=== PATIENT | female | born 1950 | race Caucasian/White ===

== ENCOUNTER → 2017-05-09 | Outpatient (CLI) | payer MEDICARE ==
[~2017-05-09] MED LIST: ADJUSTABLE COMM1 MIS; CALC600T34 PO; CINN500C2 PO; CPMMACHINE; LEVO50TA4 PO; LOVA20TA PO; LOVA40TA PO; MAGN500T2 PO; MAGN500T4 PO; RANI150C PO; TRAM50 PO; TURM500C7 PO; VITA100017 PO; VITA2000 PO; VITA500015 PO; VITA500T83 PO; WALKER WHEELS/F1 MIS; ZANT150T2 PO
[2017-05-09 08:42] LABS: AUTOMATED NEUTROPHIL # 2.2 TH/MM3 (1.8-7.7); BASOPHIL % 0.6 % (0.0-2.0); EOSINOPHIL % 0.9 % (0.0-4.0); HEMATOCRIT 41.6 % (35.0-46.0); HEMOGLOBIN 14.1 GM/DL (11.6-15.3); LYMPH % 37.5 % (9.0-44.0); LYMPHOCYTE # 1.5 TH/MM3 (1.0-4.8); MEAN CELL VOLUME 93.5 FL (80.0-100.0); MEAN CORPUSCULAR HEMOGLOBIN 31.8 PG (27.0-34.0); MEAN PLATELET VOLUME 8.1 FL (7.0-11.0); MONO % 7.9 % (0.0-8.0); MONOCYTE # 0.3 TH/MM3 (0-0.9); NEUT % 53.1 % (16.0-70.0); PLATELET COUNT 219 TH/MM3 (150-450); RED BLOOD COUNT 4.45 MIL/MM3 (4.00-5.30); RED CELL DISTRIBUTION WIDTH 14.8 % (11.6-17.2); WHITE BLOOD COUNT 4.1 TH/MM3 (4.0-11.0)
[2017-05-09 08:53] LABS: PROTHROMBIN TIME - PATIENT 9.8 SEC (9.8-11.6)
[2017-05-09 09:12] LABS: AST (GOT) 19 U/L (15-37); BICARBONATE 26.6 MEQ/L (21.0-32.0); BLOOD UREA NITROGEN 19 MG/DL (7-18); CALCIUM 9.2 MG/DL (8.5-10.1); CHLORIDE 109 MEQ/L (98-107); GLOMERULAR FILTRATION RATE 62 ML/MIN (>89); GLUCOSE,FASTING 113 MG/DL (74-99); SODIUM (NA) 143 MEQ/L (136-145)
[2017-05-09 09:13] LABS: ALT (GPT) 35 U/L (10-53)
[2017-05-09 09:15] LABS: ALKALINE PHOSPHATASE 88 U/L (45-117); TOTAL BILIRUBIN ADULT 0.7 MG/DL (0.2-1.0); TOTAL PROTEIN 7.3 GM/DL (6.4-8.2)
[2017-05-09 09:50] LABS: BILIRUBIN, URINE NEG (NEG); BLOOD, URINE NEG (NEG); GLUCOSE,URINE NEG (NEG); KETONE, URINE NEG (NEG); MUCUS URINE FEW /lpf (OCC); NITRITE,URINE NEG (NEG); URINE COLOR LIGHT-YELLOW (YELLW/STRAW); URINE LEUKOCYTE ESTERASE NEG (NEG)
--- NOTE | 2017-05-11 14:47 | MH ---
cc: Darrel Ngo MD DATE OF ADMISSION: 05/09/2017 ADMITTING DIAGNOSIS: Osteoarthritic degeneration, right knee, now being admitted for right total knee arthroplasty. ADMISSION HISTORY AND PHYSICAL: This pleasant 66-year-old female is being admitted today for right total knee arthroplasty, severe painful osteoarthritic degeneration right knee. OTHER PAST HISTORY: The patient has a history of anxiety, hypothyroidism, hyperlipidemia, and arthritis. CURRENT MEDICATIONS: Levothyroxine, lovastatin. PREVIOUS SURGERIES: Cataracts. REVIEW OF SYSTEMS: Noncontributory. FAMILY HISTORY: Noncontributory. The patient does not smoke, drinks socially. HAS ALLERGY TO PLAIN CODEINE. PHYSICAL EXAMINATION: We find a 66-year-old female, well developed, well nourished and well oriented x 3, complaint of pain in right knee. VITAL SIGNS: Blood pressure 118/72, pulse 68 and regular, respiration 14, temp 98.4, pulse oximetry 98% on room air. HEENT: Eyes PERRLA, EOMI. Ears, nose, mouth clear. NECK: Supple. LUNGS: Clear. HEART: Regular rate. ABDOMEN: Soft, positive bowel sounds, nontender. EXTREMITIES: Reveal right knee to be tender with crepitance on range of motion. Neurovascularly intact to her toes. IMPRESSION: At this time, severe painful osteoarthritic degeneration, right knee. PLAN: Admission, right total knee arthroplasty today. The patient given prescription for postoperative pain and anticoagulation control in the office, plans on going most likely home versus a senior living facility after a surgical stay in the hospital. JMD MORIS Laureano/STANLEY , 02:31 PM , 02:46 PM
== END ==
LOC: CPRE 08:00
PROVIDERS: ATTEND Surgery
DX: Z01.812 Encounter for preprocedural laboratory examination (principal); M79.609 Pain in unspecified limb
CPT/HCPCS: 36415; 80053; 81001; 85025; 85610; 85730

== ENCOUNTER 2017-05-16 05:29 | Observation (INO) | payer MEDICARE ==
--- NOTE | 2017-05-11 14:47 | MH ---
cc: Darrel Ngo MD DATE OF ADMISSION: 05/16/2017 ADMITTING DIAGNOSIS: Osteoarthritic degeneration, right knee, now being admitted for right total knee arthroplasty. ADMISSION HISTORY AND PHYSICAL: This pleasant 66-year-old female is being admitted today for right total knee arthroplasty, severe painful osteoarthritic degeneration right knee. OTHER PAST HISTORY: The patient has a history of anxiety, hypothyroidism, hyperlipidemia, and arthritis. CURRENT MEDICATIONS: Levothyroxine, lovastatin. PREVIOUS SURGERIES: Cataracts. REVIEW OF SYSTEMS: Noncontributory. FAMILY HISTORY: Noncontributory. The patient does not smoke, drinks socially. HAS ALLERGY TO PLAIN CODEINE. PHYSICAL EXAMINATION: We find a 66-year-old female, well developed, well nourished and well oriented x 3, complaint of pain in right knee. VITAL SIGNS: Blood pressure 118/72, pulse 68 and regular, respiration 14, temp 98.4, pulse oximetry 98% on room air. HEENT: Eyes PERRLA, EOMI. Ears, nose, mouth clear. NECK: Supple. LUNGS: Clear. HEART: Regular rate. ABDOMEN: Soft, positive bowel sounds, nontender. EXTREMITIES: Reveal right knee to be tender with crepitance on range of motion. Neurovascularly intact to her toes. IMPRESSION: At this time, severe painful osteoarthritic degeneration, right knee. PLAN: Admission, right total knee arthroplasty today. The patient given prescription for postoperative pain and anticoagulation control in the office, plans on going most likely home versus a correction facility after a surgical stay in the hospital. MD MORIS Garcia/STANLEY , 02:31 PM , 02:46 PM ROSALVA
[~2017-05-16] VITALS: Ht 154.9 cm; Wt 80.1 kg
[~2017-05-16 05:29] MED LIST changes: -ADJUSTABLE COMM1 MIS; -CALC600T34 PO; -CPMMACHINE; -LOVA20TA PO; -MAGN500T4 PO; -RANI150C PO; -TRAM50 PO; -VITA100017 PO; -VITA500015 PO; -WALKER WHEELS/F1 MIS
[2017-05-16] MEDS ORDERED: ACETAMINOPHEN 1000 MG/100 ML 100 ML IV ONE (05:53)
[2017-05-16] MEDS ORDERED: DEXAMETHASONE SOD PHOS PF 10 MG/ML VIAL ONE (06:31)
[2017-05-16] MEDS ORDERED: ceFAZolin INJ 1,000 MG VIAL ONE (06:49)
[2017-05-16 06:56] VITALS: PULSE 80
[2017-05-16] MEDS ORDERED: METOPROLOL TARTRATE 25 MG TAB PO PRN (07:15)
[2017-05-16] MEDS ORDERED: SODIUM CHLORID 0.9% 500 ML IV PRN (07:15)
[2017-05-16] MEDS ORDERED: CHLORHEXIDINE GLUCONATE 2 % 1 PACK (2 CLOTHS) TOPICAL PRN (07:15)
[2017-05-16] MEDS ORDERED: MIDAZOLAM HCL 2 MG/2 ML VIAL ONE (07:15)
[2017-05-16] MEDS ORDERED: POVIDONE IODINE 5% (ANTISEPSIS KIT) 4 APPLICATIONS EACH NARE PRN (07:15)
[2017-05-16] MEDS ORDERED: LACTATED RINGER'S 1000 ML IV PRN (07:15)
[2017-05-16] MEDS ORDERED: BUPIVACAINE LIPOSOME PF 1.3% 20 ML VIAL ONE (07:15)
[2017-05-16] MEDS ORDERED: APREPITANT 40 MG CAP ONE (07:27)
[2017-05-16] MEDS ORDERED: CHLORHEXIDINE GLUCONATE 4% SOLN 120 ML BTL TOPICAL SCH (07:30)
[2017-05-16] MEDS ORDERED: VANCOMYCIN 1000 MG/NS 250 ML (for <70 kg) IV SCH ×2 (07:30)
[2017-05-16] MEDS ORDERED: NALOXONE HCL 0.4 MG/ML AMP IV PUSH PRN (07:45)
[2017-05-16] MEDS ORDERED: Post-op Orders (for Pharmacy) XX ONE (07:45)
[2017-05-16] MEDS ORDERED: ACETAMINOPHEN 325 MG TAB PO PRN (07:45)
[2017-05-16] MEDS ORDERED: ACETAMINOPHEN/HYDROcodone 325 MG/7.5 MG TAB PO PRN (07:45)
[2017-05-16] MEDS ORDERED: diphenhydrAMINE HCL 50 MG/ML VIAL IV PUSH PRN (07:45)
[2017-05-16] MEDS ORDERED: TRANEXAMIC ACID INJ 0 MG in SODIUM CHLORIDE 0.9% INJ 100 ML IV SCH (07:45)
--- NOTE | 2017-05-16 07:45 | HHI.FF ---
Face to Face Verification Diagnosis: (1) Status post total right knee replacement Physical Therapy Gait training Knee: Total knee, Protocol: Right, Gait training, Full weight bearing Canvas Knee Splint: When in bed & 2 pillows btw thighs Nursing RN: 3 days/week x 2 weeks Nursing: Dressing changes Dressing Changes: Daily dressing change, 4x4s, Gauze, Paper tape I have seen patient Emelina Escobar on 05/16/17. My clinical findings support the need for the requested home health care services because: Limited ability to care for self High risk of falls I certify that my clinical findings support that this patient is homebound because: Unsteady gait/balance Darrel Ngo MD May 16, 2017 07:45
[2017-05-16] MEDS ORDERED: ADJUSTABLE COMM1 MIS (07:46)
[2017-05-16] MEDS ORDERED: WALKER WHEELS/F1 MIS (07:46)
[2017-05-16] MEDS ORDERED: CPMMACHINE (07:46)
[2017-05-16] MEDS ORDERED: SODIUM CHLORIDE 0.9% IV SCH ×2 (08:00→11:00)
[2017-05-16] MEDS ORDERED: CEFAZOLIN INJ 2,000 MG in SODIUM CHLORIDE 0.9% INJ 100 ML IV SCH (08:00)
[2017-05-16] MEDS ORDERED: BUPIVACAINE LIPOSO PF 1.3% INJ 20 ML, BUPIVACAINE PF 0.25% INJ 20 ML in SODIUM CHLORIDE... P-ARTICULR SCH (08:00)
[2017-05-16] MEDS ORDERED: TRANEXAMIC ACID IV SCH ×2 (08:00→11:00)
[2017-05-16] MEDS ORDERED: DO NOT ADM ANY ANTICOAGULANT DRUGS PRN (08:42)
[2017-05-16] MEDS: LEVOTHYROXINE SODIUM 50 MCG TAB PO SCH (09:00)
[2017-05-16] MEDS ORDERED: TURMERIC ROOT EXTRACT PO SCH (09:00)
[2017-05-16] MEDS ORDERED: CINNAMON 1000 MG PO SCH (09:00)
[2017-05-16] MEDS ORDERED: FAMOTIDINE 20 MG TAB PO PRN (09:00)
[2017-05-16] MEDS: CHOLECALCIFEROL (VIT D3) 1000 UNIT TAB PO SCH (10:00)
[2017-05-16] MEDS ORDERED: ASCORBIC ACID 500 MG PO SCH (10:00)
[2017-05-16] MEDS: PRAVASTATIN SOD 80 MG TAB PO SCH ×2 (10:00→22:45)
[2017-05-16] MEDS ORDERED: *morphine SULFATE 8 MG/ML PERIprocedure ONLY ONE ×3 (10:49→11:17)
--- NOTE | 2017-05-16 10:56 | HHI.PR ---
Immediate Post Op Note Procedure Date: May 16, 2017 Pre Op Diagnosis: (1) Osteoarthritis of right knee Post Op Diagnosis: Osteoarthritis of Right Knee Surgeon: Darrel Ngo MD Cap Blocker(s): Eula MADRIGAL Procedure: Right Total Knee Arthroplasty Complications: none Specimen(s) removed: none Estimated blood loss: 100cc Anesthesia: General Drains: None IVF Urinary Output (mLs): 0 (NO barron) Tourniquet time (min at mmHg) 55 mins at 300mmHg Patient to: PACU Patient Condition: Good Implant/Devices: SEE IMPLANT LOG (if applicable) Date/Time of Procedure: SEE SURGICAL CARE RECORD Eula Crowder May 16, 2017 10:56
[2017-05-16] MEDS: LACTATED RINGER'S 1000 ML INJ 1,000 ML IV SCH ×2 (11:09→20:34)
--- NOTE | 2017-05-16 11:16 | MP ---
cc: Darrel Ngo MD DATE OF OPERATION: DATE OF SURGERY: 05/16/2017. PREOPERATIVE DIAGNOSIS: Osteoarthritic degeneration, right knee. POSTOPERATIVE DIAGNOSIS: Osteoarthritic degeneration, right knee. PROCEDURE PERFORMED: Right total knee arthroplasty using Consensus knee system. Component sizes were: Size 3 femur, 2 tibia, 2 patella, 12 insert, 2 batches of DePuy cement. SURGEON: Dr. Ngo OUTPATIENT RECEPTIONIST: ROHAN Antonio. ANESTHESIA: General intubation and block. PROCEDURE: After successful induction of anesthesia, the patient is placed on the operating room table in the supine position. The knee is prepped and draped in the usual manner. A tourniquet is inflated at the upper thigh and set to 300 mmHg pressure after exsanguination of the lower extremity. A longitudinal incision is made extending from 3 inches proximal to the superior pole of the patella, across the patella in longitudinal fashion, and down past the insertion of the tibial tubercle into the proximal tibia. The incision is carried down through subcutaneous tissue along the medial aspect of the patella and retinaculum, down through the capsule to expose the knee joint. The patella and patellar tendon are freed up enough to allow the patella to be inverted and retracted off the lateral side of the knee joint. The knee joint is left exposed. Small osteophytes are removed. All soft tissue is removed to allow proper position of the femoral and tibial cutting jig guide. The first femoral jig is then inserted along the distal end of the femur after first measuring to decide whether this is a small, medium, or large component. The notch is then drilled and the tibial cutting guide inserted into the femoral cutting guide, along with the ankle brace to allow for proper measurement of the tibial cutting surface that needed to be resected. Pins are inserted into the tibial cutting jig and femoral cutting jig to hold them in place. An oscillating saw is then used to resect the surface of the tibia. The surface of the tibia is then completely removed using sharp and blunt dissection. The anterior and posterior cuts of the femur are then made as well using an oscillating saw through the cutting guide. All guides are then removed and the varus/valgus angulation cutting guide applied to the femur for proper measurement of the proper amount of valgus. The anterior cutting guide for the femur is then inserted at the anterior femoral cuts made. Next, the first block trial is inserted into the femur to allow for proper condyle drill holes to be made which are then made followed by removal of the bone between the condyles using an oscillating saw as well as the bone removed at the most posterior surface of the condyle. After this, this guide is removed and the chamfer cuts made using the chamfer cutting guide from both anterior and posterior. Next, the femoral trial is then inserted, the tibial surface reflected anterior to expose the tibial surface and a tibial stem guide is inserted after first measuring for a standard, standard plus, large, or large plus surface to be used. After the stem is impacted the trial tibial surface is applied followed by the trial meniscal components. After full range of motion is found with the appropriate length meniscal components varying the patella is prepared by resecting the posterior aspect of the patella using an oscillating saw, inserting a trial. The trial is then removed and the cruciate cutting guide applied using the bur to cut the cruciate cuts. After cruciate cuts are made all trials are removed. The wound is irrigated copiously with antibiotic solution and Water Pik and the actual components inserted into place using the aforementioned components, Consensus knee system, component sizes: Size 3 femur, 2 tibia, 2 patella, 12 insert, 2 batches of DePuy cement. After the cement has hardened and the components are found to have full range of motion with no instability, the tourniquet is deflated, total tourniquet time being 57 minutes at 300 mmHg pressure. 120 cc of a mixture of Exparel, normal saline and 0.25% Marcaine plain was inserted around the knee joint for extra pain control. Meticulous hemostasis achieved. Deep fascia approximated with a running #2 Quill, the subcutaneous tissue approximated using interrupted and running 2-0 and 4-0 Monocryl suture, Steri-Strips, sterile dressing and knee immobilizer. No drain utilized. ESTIMATED BLOOD LOSS: 100 cc. COUNTS: Sponge and suture counts correct. CONDITION: The patient tolerated the procedure well and left the operating room in satisfactory condition. ROHAN Antonio, was present during the entire procedure to include patient positioning and the procedure. The medical necessity of the nurse practitioner and stores assistant was indicated in this case due to the surgical complexity of the case itself. During the surgical case, the ophthalmology surgical technician was working the back table while my director medical surgical ROHAN was directly assisting me. J. Brain Ngo MD JRZachary/SB , 10:40 AM , 11:16 AM
--- NOTE | 2017-05-16 11:17 | RADRPT ---
EXAM DATE/TIME: 05/16/2017 11:51 [facility] COMPARISON: No previous studies available for comparison. INDICATIONS : Post-op total right knee arthroplasty. MEDICAL HISTORY : None. SURGICAL HISTORY : Tonsillectomy. Arthroscopy. Breast reduction. ENCOUNTER: Initial ACUITY: 1 day PAIN SCORE: 10/10 LOCATION: Right Knee. FINDINGS: Right total knee replacement is noted. The prosthesis appears to be in good position. There is no fra cture or dislocation. CONCLUSION: Status post right total knee replacement which is in good position. Phu Gould MD on May 16, 2017 at 11:14 Board Certified Radiologist. This report was verified electronically.
[2017-05-16] MEDS ORDERED: *MEPERIDINE 25 MG INJ VIAL PERIprocedural Use ONLY ONE (11:29)
[2017-05-16] MEDS ORDERED: PHENYLEPH/NS 1000 MCG/10 ML SYR IV ONE (12:00)
[2017-05-16] MEDS ORDERED: GLYCOPYRROLATE 1 MG/5 ML SYRINGE IV PUSH ONE (12:00)
[2017-05-16] MEDS ORDERED: NEOSTIGMINE 5 MG/5 ML SYRINGE IV PUSH ONE (12:00)
[2017-05-16] MEDS ORDERED: ONDANSETRON HCL 4 MG/2 ML VIAL IV PUSH ONE (12:00)
[2017-05-16] MEDS ORDERED: LIDOCAINE HCL 1% PF 5 ML SYRINGE OTHER ONE (12:00)
[2017-05-16] MEDS ORDERED: PROPOFOL 200 MG/20 ML AMP IV ONE (12:00)
[2017-05-16] MEDS ORDERED: ROCURONIUM INJ 50 MG/5 ML SYRINGE IV PUSH ONE (12:00)
[2017-05-16] MEDS: ONDANSETRON HCL 4 MG/2 ML VIAL IVP PRN (13:50)
[2017-05-16] MEDS ORDERED: MORPHINE SULFATE 4 MG/ML INJ IV PUSH PRN (14:30)
[2017-05-16 15:36] VITALS: BP 101/70; PULSE 92; RESP 18; TEMP 97.8; O2SAT 97
[2017-05-16] MEDS ORDERED: MAGNESIUM OXIDE 500 MG PO SCH (17:00)
[2017-05-16 19:35] VITALS: BP 139/71; PULSE 95; RESP 17; TEMP 97.4; O2SAT 96
[2017-05-16] MEDS ORDERED: TEMAZEPAM 15 MG CAP PO PRN (21:00)
[2017-05-16] MEDS: BENZOCAINE-MENTHOL (SUGAR FREE) 15 MG-3.6 MG LOZENGE BUCCAL PRN (21:36)
[2017-05-16 23:05] VITALS: BP 129/76; PULSE 97; RESP 17; TEMP 97.6; O2SAT 94
[2017-05-17] MEDS: ACETAMINOPHEN/HYDROcodone 325 MG/7.5 MG TAB PO PRN ×2 (02:50→08:37)
[2017-05-17] MEDS: ONDANSETRON HCL 4 MG/2 ML VIAL IVP PRN ×3 (02:56→16:48)
[2017-05-17 03:05] VITALS: BP 127/92; PULSE 90; RESP 16; TEMP 97.5; O2SAT 96
[2017-05-17] MEDS: BENZOCAINE-MENTHOL (SUGAR FREE) 15 MG-3.6 MG LOZENGE BUCCAL PRN ×2 (03:11→20:57)
[2017-05-17] MEDS: LEVOTHYROXINE SODIUM 50 MCG TAB PO SCH (04:54)
[2017-05-17 06:01] LABS: HEMOGLOBIN 11.9 GM/DL (11.6-15.3)
[2017-05-17 07:41] VITALS: BP 107/62; PULSE 99; RESP 19; TEMP 97.5; O2SAT 97
[2017-05-17] MEDS: CHOLECALCIFEROL (VIT D3) 1000 UNIT TAB PO SCH (08:36)
[2017-05-17] MEDS: PRAVASTATIN SOD 80 MG TAB PO SCH (08:37)
[2017-05-17] MEDS: APIXABAN 2.5 MG TABLET PO SCH ×2 (08:37→20:58)
[2017-05-17] MEDS: PSYLLIUM FIBER SF/GF 6 GM POWD PKT PO SCH (09:00)
[2017-05-17] MEDS: LACTATED RINGER'S 1000 ML INJ 1,000 ML IV SCH ×2 (09:30→21:01)
--- NOTE | 2017-05-17 09:51 | PD.ORT.PN ---
Subjective Subjective Remarks Pt nauseous today. Minimal pain at present. Objective Vitals Vital Signs Date Time Temp Pulse Resp B/P (MAP) Pulse Ox O2 Delivery O2 Flow Rate FiO2 05/17/17 07:41 97.5 99 19 107/62 (77) 97 05/17/17 07:16 Room Air 05/17/17 03:05 97.5 90 16 127/92 (104) 96 05/16/17 23:05 97.6 97 17 129/76 (93) 94 05/16/17 19:35 97.4 95 17 139/71 (93) 96 05/16/17 15:36 97.8 92 18 101/70 (80) 97 05/16/17 13:08 Nasal Cannula 3.00 05/16/17 12:00 77 12 121/58 (79) 94 Nasal Cannula 3 05/16/17 11:30 87 18 111/56 (74) 99 Nasal Cannula 3 05/16/17 11:15 81 17 113/56 (75) 94 Nasal Cannula 3 05/16/17 11:00 84 18 117/69 (85) 95 Nasal Cannula 3 05/16/17 10:45 83 12 124/66 (85) 93 Nasal Cannula 3 05/16/17 10:35 97.4 89 12 124/68 (86) 98 Nasal Cannula 3 I/O 05/16/17 05/16/17 05/16/17 05/17/17 05/17/17 05/17/17 07:00 15:00 23:00 07:00 15:00 23:00 Intake Total 750 ml 100 ml 820 ml Output Total 3100 ml Balance -2350 ml 100 ml 820 ml Intake Oral 720 ml IV Total 750 ml 100 ml 100 ml Output Estimated Blood Loss 100 ml Other 3000 ml # Voids 3 # Bowel Movements 0 Result Diagram: 05/17/17 0510 Objective Remarks Dressing dry and intact. No calf tenderness. Sitting up in chair. Assessment & Plan Ortho Post Op Day #: 1 Problem List: Assessment and Plan PT, meds for nausea. Home possibly tomorrow. Darrel Ngo MD May 17, 2017 09:51
[2017-05-17 11:50] VITALS: BP 107/63; PULSE 96; RESP 19; TEMP 98.8; O2SAT 96
[2017-05-17 15:35] VITALS: BP 140/71; PULSE 103; RESP 19; TEMP 97.5; O2SAT 97
[2017-05-17] MEDS: traMADol HCL 50 MG TAB PO PRN ×2 (16:47→20:58)
[2017-05-17 19:05] VITALS: BP 112/76; PULSE 114; RESP 18; TEMP 97.4; O2SAT 95
[2017-05-17] MEDS: DOCUSATE SODIUM 100 MG CAP PO SCH (20:57)
[2017-05-17] MEDS: MULTIVITAMINS/MINERALS THERAPEUTIC TAB PO SCH (20:57)
[2017-05-18 00:04] VITALS: BP 127/74; PULSE 114; RESP 17; TEMP 97.8; O2SAT 96
[2017-05-18] MEDS: traMADol HCL 50 MG TAB PO PRN ×2 (00:56→04:55)
[2017-05-18] MEDS: LEVOTHYROXINE SODIUM 50 MCG TAB PO SCH (04:55)
[2017-05-18 05:01] VITALS: BP 136/76; PULSE 113; RESP 17; TEMP 98.2; O2SAT 96
[2017-05-18 08:00] VITALS: BP 117/67; PULSE 106; RESP 16; TEMP 97.8; O2SAT 93
[2017-05-18] MEDS ORDERED: traMADol HCL 50 MG TAB PO PRN (08:15)
--- NOTE | 2017-05-18 08:15 | PD.ORT.PN ---
Subjective Subjective Remarks Pt not nauseous today. Minimal pain at present. Objective Vitals Vital Signs Date Time Temp Pulse Resp B/P (MAP) Pulse Ox O2 Delivery O2 Flow Rate FiO2 05/18/17 05:01 98.2 113 17 136/76 (96) 96 05/18/17 00:04 97.8 114 17 127/74 (91) 96 05/17/17 21:04 Room Air 05/17/17 19:05 97.4 114 18 112/76 (88) 95 05/17/17 15:35 97.5 103 19 140/71 (94) 97 05/17/17 11:50 98.8 96 19 107/63 (78) 96 I/O 05/17/17 05/17/17 05/17/17 05/18/17 05/18/17 05/18/17 07:00 15:00 23:00 07:00 15:00 23:00 Intake Total 820 ml 850 ml 360 ml Balance 820 ml 850 ml 360 ml Intake Oral 720 ml 850 ml 360 ml IV Total 100 ml # Voids 3 2 2 # Bowel Movements 0 0 Result Diagram: 05/17/17 0510 Objective Remarks Dressing dry and intact. No calf tenderness. Assessment & Plan Ortho Post Op Day #: 2 Problem List: Assessment and Plan Cont PT, home today. Darrel Ngo MD May 18, 2017 08:15
[2017-05-18] MEDS ORDERED: TRAM50 PO (08:17)
--- NOTE | 2017-05-18 08:19 | HHI.DS ---
Discharge Summary Admission Date May 16, 2017 at 10:43 Discharge Date: May 18, 2017 Admitting Diagnosis Osteoarthritic degeneration right knee Diagnosis: (1) Status post total right knee replacement Diagnosis: Principal ICD Codes: Z96.651 - Presence of right artificial knee joint Brief History This is a 66 year old female patient CBC/BMP: 05/17/17 0510 Significant Findings Laboratory Tests Test 05/17/17 05:10 Hematocrit 34.0 % (35.0-46.0) PE at Discharge Dressing dry and intact. No calf tenderness. Hospital Course Patient underwent a right total knee arthroplasty on day of admission. She received a course of prophylactic IV antibiotics and within 23 hours started on anticoagulation therapy. She did have some nausea from her by mouth pain meds which were switched to Ultram which she tolerated well. The nausea resolved itself and she continued to progress with physical therapy tolerating food and fluid well he was discharged on second postoperative day in good condition to home with home healthcare for continuation of care in good condition. Pt Condition on Discharge: Good Discharge Disposition: Disch w/ Home Health Serv Discharge Instructions Diet Instructions: As Tolerated, No Restrictions Activities You Can Perform: Full Weight Bearing, Shower Only-No Bath Activities to Avoid: Bathing, Driving Darrel Ngo MD May 18, 2017 08:19
[2017-05-18] MEDS: PRAVASTATIN SOD 80 MG TAB PO SCH (09:17)
[2017-05-18] MEDS: APIXABAN 2.5 MG TABLET PO SCH (09:17)
[2017-05-18] MEDS: DOCUSATE SODIUM 100 MG CAP PO SCH (09:18)
[2017-05-18] MEDS: MULTIVITAMINS/MINERALS THERAPEUTIC TAB PO SCH (09:18)
[2017-05-18] MEDS: CHOLECALCIFEROL (VIT D3) 1000 UNIT TAB PO SCH (09:18)
[2017-05-18] MEDS: PSYLLIUM FIBER SF/GF 6 GM POWD PKT PO SCH (09:20)
[2017-05-18 09:23] LABS: HEMATOCRIT 31.6 % (35.0-46.0)
[2017-05-18] MEDS ORDERED: BACITRACIN OINT 0.9 GM PKT TOP PRN (10:15)
[2017-05-18] MEDS: ONDANSETRON HCL 4 MG/2 ML VIAL IVP PRN (10:24)
[2017-05-18] MEDS: LACTATED RINGER'S 1000 ML INJ 1,000 ML IV SCH (10:30)
[2017-05-18 12:00] VITALS: BP 127/69; PULSE 105; RESP 16; TEMP 97.6; O2SAT 97
== END 2017-05-18 14:34 | disposition home health service (06) ==
LOC: HSDC 05:29 → EDUNIT# 08:00 → HSDI 10:43 → N06A 12:41
PROVIDERS: ADMIT Surgery; ATTEND Surgery
DX: M17.11 Unilateral primary osteoarthritis, right knee (principal); R11.0 Nausea; E78.5 Hyperlipidemia, unspecified; E03.9 Hypothyroidism, unspecified; F41.9 Anxiety disorder, unspecified; M19.90 Unspecified osteoarthritis, unspecified site
CPT/HCPCS: 00400; 27447; 73560; 85014; 85018; 86850; 86900; 86901; 94150; 96365; 96366; 96375; 96376; 97110; 97116; 97150; 97162; 97167; C1776; C9290; G0378; G8987; G8988; J0131; J0690; J1100; J2175; J2250; J2270; J2370; J2405; J2710; J3010; J3370; J7050; J7120; L1830; J8501

== ENCOUNTER 2017-05-21 11:12 | Emergency (ER) | payer MEDICARE ==
[~2017-05-21 11:12] MED LIST changes: +ADJUSTABLE COMM1 MIS; +CPMMACHINE; +TRAM50 PO; +WALKER WHEELS/F1 MIS
[2017-05-21] MEDS ORDERED: IOHEXOL 350 MG/ML 10 ML VIAL (for RAD DIAG) IVCONTRAST ONE (11:13)
[2017-05-21 11:31] VITALS: BP 180/102; PULSE 94; RESP 16; TEMP 97.8; O2SAT 95
--- NOTE | 2017-05-21 12:07 | PD ---
HPI Chief Complaint: tachycardia Time Seen by Provider: 11:55 Travel History International Travel<30 days: No Contact w/Intl Traveler<30days: No Traveled to known affect area: No History of Present Illness HPI 66yoF with PMH of hypothyroidism and recent right knee surgery was sent here by home health nurse this morning because her blood pressure was elevated and she had tachycardia with heart rate about 114-117bpm. Pt said she does have a history of anxiety and heart rate has been high before. Said she has headache and feels nauseous. Denies any fever, visual changes, chest pain, sob, vomiting , abdominal pain, focal weakness or numbness. Pt had been hospitalized 05/16/17- for right knee replacement with Dr. Ngo. Pt has not been walking since surgery and took eliquis last night but not today. Denies any history of PE, DVT. Pt last took tramadol at 3am this morning. PFSH Past Medical History Cancer: No Cardiovascular Problems: No Diabetes: No Endocrine: Yes Gastrointestinal Disorders: Yes (OCCASIONAL REFLUX) Genitourinary: No Hepatitis: No Hiatal Hernia: No Hypertension: No Immune Disorder: No Musculoskeletal: Yes (OA) Neurologic: No Psychiatric: Yes (ANXIETY) Reproductive: No Respiratory: No Thyroid Disease: Yes Past Surgical History Abdominal Surgery: No AICD: No Cardiac Surgery: No Ear Surgery: No Endocrine Surgery: No Eye Surgery: Yes (BILATERAL CATARACTS) Genitourinary Surgery: No Gynecologic Surgery: Yes (BREAST REDUCTION) Joint Replacement: No Neurologic Surgery: No Oral Surgery: No Pacemaker: No Thoracic Surgery: No Other Surgery: Yes Social History Alcohol Use: No Tobacco Use: No Substance Use: No Allergies-Medications (Allergen,Severity, Reaction): Coded Allergies: caffeine (Verified Allergy, Severe, TACHYCARDIA, 05/21/17) codeine (Unverified Allergy, Severe, TACHYCARDIA, 05/21/17) Reported Meds & Prescriptions Reported Meds & Active Scripts Active Ultram (Tramadol HCl) 50 Mg Tab 50 Mg PO Q3HR PRN 14 Days Walker with Front Wheels (Device) 1 Mis Mis Ea .XX DIRECTED Adjustable Commode 3-in-1 (Device) 1 Mis Mis Ea .XX DIRECTED CPM-Continuous Passive Motion Machine 1 Ea Device Ea .XX DIRECTED Reported Turmeric (Turmeric Root Extract) 500 Mg Capsule 1 Tab PO DAILY Eql Cinnamon (Cinnamon) 500 Mg Cap 1,000 Mg PO DAILY Magnesium Oxide 500 Mg Tab 500 Mg PO DAILY Vitamin D3 (Cholecalciferol) 2,000 Unit Cap 2,000 Units PO DAILY Vitamin C ER (Ascorbic Acid) 500 Mg Summer 500 Mg PO DAILY Zantac (Ranitidine HCl) 150 Mg Tab 150 Mg PO DAILY PRN Lovastatin 40 Mg Tab 80 Mg PO DAILY Levothyroxine (Levothyroxine Sodium) 50 Mcg Tab 37.5 Mcg PO DAILY Review of Systems Except as stated in HPI: all other systems reviewed are Neg Physical Exam Narrative GENERAL: 66yo F in mild distress. SKIN: Focused skin assessment warm/dry. HEAD: Atraumatic. Normocephalic. EYES: Pupils equal and round. No scleral icterus. No injection or drainage. ENT: No nasal bleeding or discharge. Mucous membranes pink and moist. NECK: Trachea midline. No JVD. CARDIOVASCULAR: Regular rate and rhythm. No murmur appreciated. RESPIRATORY: No accessory muscle use. Clear to auscultation. Breath sounds equal bilaterally. GASTROINTESTINAL: Abdomen soft, non-tender, nondistended. MUSCULOSKELETAL: Right knee dressing clean, dry and intact. Distal pulses intact. Sensation intact. NEUROLOGICAL: Awake and alert. No obvious cranial nerve deficits. Motor grossly within normal limits. Normal speech. PSYCHIATRIC: Appropriate mood and affect; insight and judgment normal. Data Data Last Documented VS Vital Signs Date Time Temp Pulse Resp B/P (MAP) Pulse Ox O2 Delivery O2 Flow Rate FiO2 05/21/17 13:33 93 16 158/76 (103) 94 Room Air 05/21/17 11:31 97.8 Orders Orders Complete Blood Count With Diff (05/21/17 12:05) Basic Metabolic Panel (Bmp) (05/21/17 12:05) Prothrombin Time / Inr (Pt) (05/21/17 12:05) Act Partial Throm Time (Ptt) (05/21/17 12:05) Ct Pulmonary Angiogram (05/21/17 ) Prochlorperazine Inj (Compazine Inj) (05/21/17 12:15) Lorazepam Inj (Ativan Inj) (05/21/17 12:15) Thyroid Stimulating Hormone (05/21/17 12:05) Iohexol 350 Inj (Omnipaque 350 Inj) (05/21/17 11:13) Labs Laboratory Tests Test 05/21/17 12:12 White Blood Count 4.6 TH/MM3 Red Blood Count 3.61 MIL/MM3 Hemoglobin 11.1 GM/DL Hematocrit 33.6 % Mean Corpuscular Volume 92.9 FL Mean Corpuscular Hemoglobin 30.8 PG Mean Corpuscular Hemoglobin Concent 33.2 % Red Cell Distribution Width 13.6 % Platelet Count 259 TH/MM3 Mean Platelet Volume 7.3 FL Neutrophils (%) (Auto) 76.3 % Lymphocytes (%) (Auto) 15.3 % Monocytes (%) (Auto) 6.8 % Eosinophils (%) (Auto) 0.9 % Basophils (%) (Auto) 0.7 % Neutrophils # (Auto) 3.6 TH/MM3 Lymphocytes # (Auto) 0.7 TH/MM3 Monocytes # (Auto) 0.3 TH/MM3 Eosinophils # (Auto) 0.0 TH/MM3 Basophils # (Auto) 0.0 TH/MM3 CBC Comment DIFF FINAL Differential Comment Prothrombin Time 9.4 SEC Prothromb Time International Ratio 0.9 RATIO Activated Partial Thromboplast Time 25.2 SEC Blood Urea Nitrogen 10 MG/DL Creatinine 0.72 MG/DL Random Glucose 127 MG/DL Calcium Level 8.6 MG/DL Sodium Level 138 MEQ/L Potassium Level 3.7 MEQ/L Chloride Level 103 MEQ/L Carbon Dioxide Level 30.0 MEQ/L Anion Gap 5 MEQ/L Estimat Glomerular Filtration Rate 81 ML/MIN Thyroid Stimulating Hormone 3rd Gen 3.530 uIU/ML MDM Medical Decision Making Medical Screen Exam Complete: Yes Emergency Medical Condition: Yes Interpretation(s) EKG:NSR 92bpm. LAD. No ST segment elevation or depression. Differential Diagnosis Hyperthyroid vs. PE vs. anxiety vs. tachycardia secondary to pain Narrative Course 66yo F with tachycardia and elevated blood pressure today. Pt normally does not have high blood pressure and does not take any blood pressure medication. BP is 180/102. HR is 94-100bpm. Pt denies any chest pain or sob but has recent knee replacement and has been immobilized. Pt is placed on eliquis. Pt said she always have elevated heart rate because of her anxiety. Labs reviewed , no leukocytosis. H/H is 11/33.6 which is at baseline. BMP unremarkable. TSH normal. CT angio negative for PE. Pt reevaluated at bedside after compazine and ativan and said headache has resolved. Also feeling much better. Repeat BP is 158/76. Pt was not given any medication for blood pressure and elevated blood pressure may be secondary to anxiety so will have pt follow up with primary care physician. Creatinine is normal. Return precautions given. Diagnosis Primary Impression: Elevated blood pressure reading Patient Instructions: General Instructions Departure Forms: Tests/Procedures Additional Instructions: Please follow up with your primary care physician regarding your elevated blood pressure in the ED today. Please follow up with your orthopedic surgeon as scheduled. Return to the ED if symptoms worsen. Med/Other Pt SpecificInfo: No Change to Meds Disposition: 01 DISCHARGE HOME Condition: Stable Sigrid Rubin DO May 21, 2017 12:07
[2017-05-21] MEDS ORDERED: LORazepam 2 MG/ML VIAL IV PUSH ONE (12:15)
[2017-05-21] MEDS ORDERED: PROCHLORPERAZINE INJ 10 MG/2 ML VIAL IV PUSH ONE (12:15)
[2017-05-21 12:18] LABS: AUTOMATED NEUTROPHIL # 3.6 TH/MM3 (1.8-7.7); BASOPHIL % 0.7 % (0.0-2.0); EOSINOPHIL % 0.9 % (0.0-4.0); HEMATOCRIT 33.6 % (35.0-46.0); HEMOGLOBIN 11.1 GM/DL (11.6-15.3); LYMPH % 15.3 % (9.0-44.0); LYMPHOCYTE # 0.7 TH/MM3 (1.0-4.8); MEAN CELL VOLUME 92.9 FL (80.0-100.0); MEAN CORPUSCULAR HEMOGLOBIN 30.8 PG (27.0-34.0); MEAN CORPUSCULAR HGB CONC 33.2 % (32.0-36.0); MEAN PLATELET VOLUME 7.3 FL (7.0-11.0); MONO % 6.8 % (0.0-8.0); MONOCYTE # 0.3 TH/MM3 (0-0.9); NEUT % 76.3 % (16.0-70.0); PLATELET COUNT 259 TH/MM3 (150-450); RED BLOOD COUNT 3.61 MIL/MM3 (4.00-5.30); RED CELL DISTRIBUTION WIDTH 13.6 % (11.6-17.2); WHITE BLOOD COUNT 4.6 TH/MM3 (4.0-11.0)
[2017-05-21 12:31] LABS: CALCIUM 8.6 MG/DL (8.5-10.1)
[2017-05-21 12:32] LABS: INTERNATIONAL NORMALIZED RATIO 0.9 RATIO; PROTHROMBIN TIME - PATIENT 9.4 SEC (9.8-11.6)
[2017-05-21 12:35] LABS: CREATININE 0.72 MG/DL (0.50-1.00)
--- NOTE | 2017-05-21 13:32 | RADRPT ---
EXAM DATE/TIME: 05/21/2017 13:11 [facility] COMPARISON: No previous studies available for comparison. INDICATIONS : Tachycardia and hypertension following knee surgery. IV CONTRAST: 73 cc Omnipaque 350 (iohexol) IV RADIATION DOSE: 16.23 CTDIvol (mGy) MEDICAL HISTORY : Hypothyroidism. SURGICAL HISTORY : Total knee replacement, right. Breast reduction. ENCOUNTER: Initial ACUITY: 1 day PAIN SCALE: 0/10 LOCATION: Bilateral chest TECHNIQUE: Volumetric scanning of the chest was performed using a pulmonary embolism protocol MIP images were re constructed. Using automated exposure control and adjustment of the mA and/or kV according to patien t size, radiation dose was kept as low as reasonably achievable to obtain optimal diagnostic quality images. DICOM format image data is available electronically for review and comparison. Follow-up recommendations for detected pulmonary nodules are based at a minimum on nodule size and pa tient risk factors according to Fleischner Society Guidelines. FINDINGS: PULMONARY ARTERIES: No filling defects are seen in the pulmonary arteries through the segmental level. LUNGS: There is no consolidation or pneumothorax . No concerning pulmonary nodule is visualized. PLEURAE: There is no pleural thickening or pleural effusion. MEDIASTINUM: There is good visualization of the great vessels of the middle mediastinum. No evidence of mediastin al or hilar adenopathy/mass. MUSCULOSKELETAL: Within normal limits for patient age. MISCELLANEOUS: The visualized upper abdominal organs demonstrate no acute abnormality. CONCLUSION: Normal examination. Jasbir Coleman MD on May 21, 2017 at 13:28 Board Certified Radiologist. This report was verified electronically.
[2017-05-21 13:33] VITALS: BP 158/76; PULSE 93; RESP 16; O2SAT 94
--- NOTE | 2017-05-21 16:28 | EKG ---
Date Performed: 05/21/2017 Time Performed: 11:29:28 PTAGE: 66 years EKG: Sinus rhythm BORDERLINE LEFT AXIS DEVIATION MINIMAL VOLTAGE CRITERIA FOR LVH, CONSIDER NORMAL VARIANT BORDERLINE ECG NO PREVIOUS TRACING DOCTOR: Margaret Biggs Interpretating Date/Time 05/21/2017 16:27:07
== END 2017-05-21 14:06 | disposition home or self-care (01) ==
LOC: PHED 11:12
DX: R03.0 Elevated blood-pressure reading, without diagnosis of hypertension (principal); R94.31 Abnormal electrocardiogram [ECG] [EKG]; F41.9 Anxiety disorder, unspecified; E07.9 Disorder of thyroid, unspecified; R11.0 Nausea; R51 Headache; Z88.5 Allergy status to narcotic agent; Z96.651 Presence of right artificial knee joint
CPT/HCPCS: 71275; 80048; 84443; 85025; 85610; 85730; 93005; 96374; 96375; 99285; J0780; J2060; Q9967